=== PATIENT | male | born 1970 | race Caucasian/White ===

== ENCOUNTER → 2020-07-18 | Outpatient (CLI) | payer OTHER ==
[~2020-07-18] MED LIST: ASPIRIN CHEWABL81 MG PO; BRILINTA90 MG PO; CYMBALTA60 MG PO; LIPITOR TAB 2020 MG PO; LISINOPRIL10 MG PO; METHADONE HCL T10 MG PO; NEURONTIN 300300 MG PO; NIACIN CR 500500 MG PO; NICOTINE PATCH1 EAC1 TP; NITROSTAT 0.40.4 MG SL; PERCOCET 10-321 EACH PO; PROTONIX40 MG PO; REQUIP1 MG PO; TOPROL XL25 MG PO
== END ==
LOC: EXRD 15:37
DX: R41.3 Other amnesia (principal); M19.021 Primary osteoarthritis, right elbow
CPT/HCPCS: 73080

== ENCOUNTER → 2020-10-24 | Outpatient (CLI) | payer OTHER | LOC: KOH-I 12:00 | DX: M24.021 Loose body in right elbow (principal); M19.021 Primary osteoarthritis, right elbow | CPT/HCPCS: 73200 ==

== ENCOUNTER → 2020-11-15 | Outpatient (CLI) | payer OTHER | LOC: KOH-I 14:25 | DX: R41.3 Other amnesia (principal) | CPT/HCPCS: 70450 ==

== ENCOUNTER → 2021-02-16 | Outpatient (CLI) | payer OTHER | LOC: HEART 5 08:24 | DX: I25.10 Atherosclerotic heart disease of native coronary artery without angina pectoris (principal); R07.9 Chest pain, unspecified; I08.8 Other rheumatic multiple valve diseases | CPT/HCPCS: 78452; 93306; A9502; J2785 ==

== ENCOUNTER 2021-12-20 10:48 | Observation (INO) | payer MEDICARE ==
[~2021-12-20] VITALS: Ht 188 cm; Wt 97.5 kg
[~2021-12-20 10:48] MED LIST changes: -LISINOPRIL10 MG PO; +LISINOPRIL2.5 MG PO; -REQUIP1 MG PO; +ROPINIROLE HCL2 MG PO; +TESTOSTERO200 MG/1 M IM
[2021-12-20 11:52] LABS: HEMOGLOBIN 16.9 gm/dl (14.0-17.5); RED BLOOD COUNT 5.27 M/UL (4.20-5.50); WHITE BLOOD COUNT 6.1 K/UL (4.5-11.0)
[2021-12-20 12:40] LABS: BUN/CREATININE RATIO 12 (0-10)
[2021-12-20] MEDS ORDERED: BACLOFEN10 MG PO (16:48)
[2021-12-20] MEDS ORDERED: LIDOCAINE 5% TOP (16:50)
[2021-12-20] MEDS ORDERED: CETIRIZINE HCL10 MG PO (16:53)
[2021-12-21 05:47] LABS: HEMOGLOBIN 16.2 gm/dl (14.0-17.5); RED BLOOD COUNT 5.08 M/UL (4.20-5.50); WHITE BLOOD COUNT 5.6 K/UL (4.5-11.0)
[2021-12-21 06:07] LABS: BUN/CREATININE RATIO 18 (0-10)
== END 2021-12-22 15:21 | disposition home or self-care (01) ==
LOC: ER1 10:48 → CDU 15:41 → MED SURG 4 15:41
PROVIDERS: Nurse Practitioner; Physician Assistant; ADMIT Internal Medicine
DX: R55 Syncope and collapse (principal); I25.10 Atherosclerotic heart disease of native coronary artery without angina pectoris; I10 Essential (primary) hypertension; E78.5 Hyperlipidemia, unspecified; G89.29 Other chronic pain; M54.9 Dorsalgia, unspecified; F41.0 Panic disorder [episodic paroxysmal anxiety]; F17.290 Nicotine dependence, other tobacco product, uncomplicated; I25.2 Old myocardial infarction; Z79.82 Long term (current) use of aspirin; Z79.899 Other long term (current) drug therapy; Z95.5 Presence of coronary angioplasty implant and graft
CPT/HCPCS: ECHO; 36415; 70450; 70496; 70498; 71045; 80048; 80053; 81001; 82550; 82553; 84484; 85025; 85610; 85730; 93005; 93306; 96374; 99285; G0378; J1885; Q9967